=== PATIENT | female | born 1960 | race Caucasian/White ===

== ENCOUNTER 2018-07-20 07:31 | Observation (INO) ==
[2018-07-20] MEDS ORDERED: EPINEPHRINE IM ONE (07:35)
[2018-07-20] MEDS ORDERED: SOLU-MEDROL IV ONE (07:36)
[2018-07-20] MEDS ORDERED: BENADRYL IV ONE (07:36)
[2018-07-20] MEDS ORDERED: ZOFRAN IV ONE (07:42)
[2018-07-20 08:02] LABS: BASO# 0.02 X1000 (0.0-0.2); BASO% 0.1 % (0.0-0.8); EOS# 0.16 X1000 (0.0-0.7); EOS% 1.1 % (0.0-10.0); HEMATOCRIT 37.1 % (37.0-47.0); HEMOGLOBIN 11.8 g/dL (12.0-16.0); IMM GRAN# 0.06 X1000 (0.0-0.04); IMM GRAN% 0.4 % (0.0-0.5); LYMPH% 11.9 % (20.5-51.1); MCH 25.2 PG (27-31); MCHC 31.8 g/dL (33-37); MCV 79.1 FL (81-99); MONO# 0.66 X1000 (0.11-0.59); MONO% 4.6 % (1.7-9.3); MPV 9.8 FL (7.4-10.4); NEUT# 11.65 X1000 (1.4-6.5); NEUT% 81.9 % (42.2-75.2); PLT 416 X1000 (130-400); RBC 4.69 XMIL (4.2-5.4); RDW 14.9 % (11.5-14.5); WBC 14.25 X1000 (4.8-10.8)
[2018-07-20] MEDS ORDERED: ATIVAN IV ONE (08:28)
[2018-07-20 08:29] LABS: AGAP 14; ALB/GLOB RATIO 1.2; ALBUMIN 3.7 g/dL (3.5-5.0); ALKALINE PHOSPHATASE 119 U/L (32-104); AMYLASE 40 U/L (20-200); BUN 15 mg/dL (8-22); CALCIUM 8.6 mg/dL (8.8-10.2); CHLORIDE 103 mmol/L (98-107); COSMO 291; CREATININE 0.7 mg/dL (0.5-0.9); ESTIMATED GFR > 60; GLUCOSE 151 mg/dL (70-104); GOT 14 U/L (10-30); GPT 16 U/L (10-36); LIPASE 18 U/L (13-60); POTASSIUM 3.3 mmol/L (3.5-5.1); SODIUM 144 mmol/L (136-145); TCO2 27 mmol/L (25-35); TOTAL BILIRUBIN 0.25 mg/dL (0.20-1.00); TOTAL PROTEIN 6.9 g/dL (6.3-8.3)
[2018-07-20] MEDS ORDERED: NS 1,000 ML IV ONE (08:29)
[2018-07-20] MEDS ORDERED: ZOFRAN IV PRN (08:57)
[2018-07-20] MEDS ORDERED: TYLENOL PO PRN (08:57)
--- NOTE | 2018-07-20 09:04 | PROVIDER DOCUMENTATION ---
This chart was entered by Lavonne Angeles Scribe, acting as scribe for Mathew Conroy MD. HPI-General Adult - General Chief Complaint: Allergic Reaction Stated Complaint: THROAT CLOSING UP Time Seen by Provider: 07/20/18 07:33 Source: patient Allergies/Adverse Reactions: Patient Allergies Allergy/AdvReac Type Severity Reaction Status Date / Time Penicillins AdvReac RASH Verified 07/20/18 07:48 Home Medications: Home Medication List Medication Instructions Recorded Confirmed Last Taken Type Estrogens,Conj/Bazedoxifene 1 tab PO DAILY 07/20/18 07/20/18 07/19/18 History [Duavee 0.45 mg/20 mg Tablet] Hydrochlorothiazide 25 mg PO DAILY 07/20/18 07/20/18 07/19/18 History Losartan [Cozaar] 100 mg PO DAILY 07/20/18 07/20/18 07/19/18 History Omeprazole 40 mg PO DAILY 07/20/18 07/20/18 07/19/18 History Venlafaxine HCl [Venlafaxine HCl 75 mg PO HS 07/20/18 07/20/18 07/19/18 History ER] - History of Present Illness -Gen Adult Nature of Presenting Problems: 57yof with hx of HTN c/o sore throat, nausea, vomiting that began yesterday and has worsened this morning. She denies any other pain. The patient's sister reports that she made "spicy chicken wings" for dinner last night for the patient. The patient's sister denies that the patient has had an allergic reaction similar to this episode previously. She reports she is allergic to penicillin. The patient's sister is at bedside. Location of Pain/Injury: reports: face (swollen), mouth (sore throat) Quality of Pain: reports: other (sore) Severity: reports: mild Onset/Duration: reports: this morning (worsened), last night Timing: reports: still present, intermittent, constant Context/Activities at Onset: reports: none Modifying Factors: improves with: nothing Associated Symptoms: reports: nausea, vomiting, other (sore throat, swollen face) Similar Symptoms Previously?: No Recently seen or treated by another doctor?: No Review of Systems - Adult - REVIEW OF SYSTEMS - ADULT ROS:: limited per condition Constitutional: denies: chills, fever Eyes: reports: no symptoms reported Ears, Nose, Mouth & Throat: reports: throat pain (sore throat) Cardiovascular: reports: no symptoms reported Respiratory: reports: no symptoms reported Gastrointestinal: reports: nausea, vomiting Genitourinary: reports: no symptoms reported Musculoskeletal: reports: no symptoms reported Integumentary: reports: other (swollen face). denies: itching Neurological: reports: no symptoms reported Psychiatric: reports: no symptoms reported Endocrine: reports: no symptoms reported Hematologic/Lymphatic: reports: no symptoms reported Allergic/Immunologic: reports: no symptoms reported All Other Systems: Reviewed and Negative Past History - Adult - PAST MEDICAL HISTORY-ADULT Review of Records: reports: Old Records Reviewed, Nursing Assessment Review, Medications Reviewed, Social history reviewed & non-contributory. Major Childhood Illnesses: reports: denies history Cardiovascular: reports: HTN - PRIOR SURGERIES/PROCEDURES Surgical/Procedure History: reports: none - IMMUNIZATION STATUS Childhood Immunizations: See Nurse Assessment Flu Vaccine: See Nurse Assessment - FAMILY HISTORY Family History: reviewed, not pertinent - SOCIAL HISTORY Living Situation: family Physical Exam-General - PHYSICAL EXAM-ADULT Initial Vital Signs Reviewed: Yes - CONSTITUTIONAL General Appearance: alert, mild distress, obese, anxious - EYES Eyes: PERRL/EOMI, pink conjunctivae - HEAD, EARS, NOSE, MOUTH & THROAT HENMT: angioedema (mild limited to uvula.), pharyngeal erythema, other (uvula swollen, erythema) - NECK Neck: non-tender, supple - RESPIRATORY Respiratory: lungs clear, normal breath sounds. negative: rhonchi, wheezing - CARDIOVASCULAR Cardiovascular: no murmur, tachycardia - GASTROINTESTINAL (ABDOMEN) Abdominal Exam: non tender, soft - MUSCULOSKELETAL Extremity: normal range of motion, non-tender, normal inspection, no pedal edema - SKIN Integumentary: normal color, warm/dry - NEUROLOGIC Neurologic: grossly normal, no motor/sensory deficits - PSYCHIATRIC Psych/Mental Status: oriented x 3, anxious Progress - PLAN OF CARE/RESULTS Result Diagrams: 07/20/18 07:40 07/20/18 07:40 - REASSESSMENT Reassessment #1 Time Reassessed: 08:15 Status: unchanged (no respiratory distress, pt is speaking well) Reassessment #2 Time Reassessed: 08:30 Status: unchanged Reassessment #3 Time Reassessed: 08:41 Status: unchanged (pt is still anxious, pt expresses anxiety about being admitted to the hospital. pt is handling secretions well, no respiratory distress, pt is still speaking well) Reassessment #4 Time Reassessed: 09:45 Status: improving (at recheck, pts erythema is now improving and petechiae now more noticable on exam. Plan is to admit and proceed with possible infectious workup and continue monitoring for angioedema/allergic reaction.) - EKG 1 Time of EKG reading by physician:: 11:27 EKG Read and Signed by:: Mathew Conroy EKG Interpretation (*Must complete 3 of following elements*): Abnormal Rate: 112 Rhythm: Sinus tachycardia [place]: normal ST Wave: non-specific ST changes (T wave abnormality) - XRAY 1 XRAY Study: Chest Impression: Normal (FINDINGS: The lungs are well expanded. The heart is not enlarged. The vessels are not distended. There are no infiltrates. No pleural effusions. IMPRESSION: No pneumonia.) - CONSULTS/PCP/HOSPITALIST Notification #1 *Consult/PCP/Hospitalist*: Elizabeth MERCEDES Time Discussed: 08:49 Consult Disposition: Admit Departure - Departure Date of Disposition Decision: 07/20/18 Time of Disposition Decision: 09:00 DIAGNOSIS: Allergic reaction, Angioedema, HTN (hypertension) Disposition: ADMITTED INPATIENT 09 Certified Medical Emergency: Emergent Condition: Fair - Critical Care Note This patient required my direct & personal management of CC.: Yes Total Time (mins): 60 Critical Care Statement: This patient required my direct personal management to treat or rule out processes, the absence of which, could potentiallly result in sudden, clinically significant life or limb threatening deterioration. Attestation - Physician/ SHANNAN Attestation Patient care was provided by Advanced Practice Provider:: No The physician spent face to face time with patient:: Yes Advanced Practice Provider documentation review:: Supervising physician onsite and consulted in the evaluation and care of this patient. The physician did have a face to face encounter with the patient. This chart was documented by the indicated scribe, (Lavonne Angeles Scribe) and accurately reflects the services I performed and decisions made by me, Mathew Conroy MD, as attested by the provider's signature.
[2018-07-20 09:32] LABS: INR 0.91
[2018-07-20 09:33] LABS: PTT 28.2 Seconds (22.3-41.8)
[2018-07-20] MEDS ORDERED: EPIPEN IM PRN (09:56)
[2018-07-20] MEDS ORDERED: ZANTAC IV SCH (10:15)
[2018-07-20] MEDS ORDERED: DUONEB (A & A) ONE (10:25)
[2018-07-20] MEDS: DUONEB (A & A) INH SCH ×4 (10:30→23:14)
--- NOTE | 2018-07-20 10:30 | Diag Imaging Result Doc PS360 ---
EXAM: CHEST-2 VIEWS HISTORY: anaphylaxis; leukocytosis TECHNIQUE: Chest two views COMPARISON: None. FINDINGS: The lungs are well expanded. The heart is not enlarged. The vessels are not distended. There are no infiltrates. No pleural effusions. IMPRESSION: No pneumonia. Electronically signed by Kyaw Chaves 07/20/2018 10:27 AM
[2018-07-20 10:42] LABS: ALLEN TEST YES; BE 4.4 mmoll (-3.0-3.0); BLOOD TYPE ARTERIAL; HCO3-(ACT) 28.2 mmoll (20.0-26.0); METHB 1.1 % (0.0-1.5); O2(CT) 14.9 mL/dL (15.0-23.0); PCO2(98.6) 39 mmHg (35-45); PO2(98.6) 59 mmHg (60-100); SAMPLE BLOOD; SAO2 94.8 % (95.0-100.0); THB 11.5 g/dL (11.5-17.4); pH(98.6) 7.47 (7.35-7.45)
[2018-07-20 10:44] LABS: MODALITY ROOM AIR
[2018-07-20] MEDS ORDERED: DECADRON IV SCH (11:00)
[2018-07-20 11:25] LABS: HEMOGLOBIN A1C 5.9 % (4.8-6.0)
--- NOTE | 2018-07-20 11:32 | HISTORY AND PHYSICAL ---
PRIMARY CARE PHYSICIAN: Dr. Donta Garces CHIEF COMPLAINT: Shortness of breath and throat swelling. HISTORY OF PRESENT ILLNESS: Ms. Chelsi Rebolledo is a 57-year-old female with a medical history of hypertension, depression, seasonal allergies and GERD, who presents with complaints of 2 days' history of throat pain with progressive swelling. She states the night before last, she woke up in the middle of the night with drainage and felt like she was having some sinus infection, and then she woke up that morning around 0730 with a sore throat. She went to the [employer] all day yesterday, took ibuprofen, and then had dinner after [employer] which included hot wings with [employer] Sauce. She felt like it had gotten worse. She was awake all night and then slept some and by this morning when she woke up, she could not swallow, was only able to spit clear colored sputum and was having significant respiratory distress. Her 5-year-old grandson called family. She was able to get help. She also felt like she was hot with chills this morning but otherwise no other complaints about the throat or fevers or anything, just sore throat for 2 days with swelling. When she got here, she was in a good bit of respiratory distress. She was treated for anaphylaxis. Had significant angioedema in her throat. Speech was muffled. She was near high risk for intubation. She received IV Benadryl, IV Ativan, IM EpiPen, 125 of Solu Medrol and 4 of Zofran urgent, emergently, which all seemed to have helped quite a bit. She is currently on room air with good O2 saturations. She still feels like her throat is swollen, but the throat is more visible now, where it was just erythematous, and now there appears to be a red rash in the back of her throat. She states she felt like there was a white rash at some point last night or this morning, but now it is red. She does not have fever. She does have an elevated white blood cell count at 14,000. We will swab her throat to evaluate for strep. 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 We will transfer her to the ICU and keep an EpiPen at the bedside in case of emergency due to anaphylaxis. PAST MEDICAL HISTORY: 1. Hypertension. 2. Melanoma 10 years ago, free of cancer now. 3. Depression. 4. Seasonal allergies. 5. GERD. 6. Left hip bursitis. 7. Left elbow tendonitis. PAST SURGICAL HISTORY: 1. Ten years ago melanoma removed. 2. Right ankle repair. 3. Uterine ablation. SOCIAL HISTORY: Denies tobacco, alcohol or illicit drug use. She is a grandmother and had her grandchild with her last night. She works at school around children. FAMILY HISTORY: Mother's side of the family had breast cancer, diabetes, and coronary artery disease. Father's side of the family had coronary artery disease and melanoma. ALLERGIES: Penicillin. HOME MEDICATIONS: 1. Cozaar 100 mg p.o. daily. 2. Duavee 1 tab p.o. daily (that is estrogen). 3. Hydrochlorothiazide 25 mg p.o. daily. 4. Omeprazole 40 mg p.o. daily. 5. Venlafaxine HCl extended release 75 mg p.o. nightly. REVIEW OF SYSTEMS: A 14-point review of systems are complete, and all are negative except for those mentioned in the above HPI. PHYSICAL EXAMINATION: VITAL SIGNS: Temperature is 98.8, heart rate 105, respiratory rate 16, blood pressure 165/71, O2 saturation is 97% on room air. GENERAL: Ms. Chelsi Rebolledo is a 57-year-old female. She is in no acute distress. She is able to answer questions appropriately. She does have swelling in the throat which changes the sound of her voice, but no respiratory distress at this time. HEENT: Atraumatic and normocephalic. Oropharyngeal area is red. She has red and little petechia, a rash in the back of her throat. It is swollen to the point that it is causing her voice to change. She states that it is hard to swallow. Pupils equal and reactive. Extraocular movements were intact. NECK: Trachea midline. CARDIOVASCULAR: S1 and S2. Tachycardic rate and rhythm. No rubs, gallops or murmurs. No lower extremity edema. Plus 2 dorsalis and radial pulses. Negative JVD or carotid bruits. PULMONARY: Clear to auscultation, bilateral breath sounds. No accessory muscle use or work of breathing noted. Tolerating room air. GASTROINTESTINAL: Soft, nontender and nondistended. Positive bowel sounds x4. EXTREMITIES: Moves all extremities equally with full range of motion. NEUROLOGICAL: Alert and oriented x3. Follows commands. Sensory is intact. SKIN: Warm, dry and intact. DIAGNOSTIC DATA: White blood cells are 14,000, hemoglobin 11, hematocrit 37, platelet count 416. INR is 0.91. PTT is 28.2. Sodium is 144, potassium 3.3, BUN is 15, creatinine 0.7, glucose 151, calcium 8.6, bilirubin is 0.25, AST is 14, ALT is 16. Troponin less than 0.01. Albumin is 3.7. Amylase 40, lipase 18. IMAGING: Chest x-ray is currently pending and has been performed. Report is not available yet. ASSESSMENT AND PLAN: 1. Anaphylaxis, source unknown. She has angioedema, pharyngitis, and a rash in her throat. She does have leukocytosis. It could be due to the inflammatory response, but this rash could be infectious as well. She does work around children. Throat swab has been ordered to rule out strep. Apparently she has been having symptoms that have been becoming more progressive since 2 days ago. She will be scheduled on Benadryl, Zantac and Solu Medrol. We will monitor her in the ICU. We will also keep a rescue EpiPen at the bedside and will do nebulizers with albuterol every 4 hours. 2. Hypertension. She is hypertensive, but we are going to have to hold oral medications for now. 3. Depression. Hold medication for now. 4. Gastroesophageal reflux disease. She will be on the Zantac, so that should help with that. 5. DVT prophylaxis with SCDs. Dictated by MAGO Reed for Orion Giraldo MD cc: MAGO Reed MD
[2018-07-20 12:31] LABS: URINE SOURCE CLEAN CATCH
[2018-07-20] MEDS: BENADRYL IV SCH ×4 (12:45→23:30)
[2018-07-20] MEDS: ZANTAC 50 MG in NS 50 ML IV SCH ×2 (12:45→20:06)
[2018-07-20 12:47] LABS: BILIRUBIN URINE NEGATIVE (NEGATIVE); BLOOD URINE NEGATIVE (NEGATIVE); COLOR YELLOW; GLUCOSE URINE NEGATIVE (NEGATIVE); KETONE URINE 20 mg/dL (NEGATIVE); LEUKOCYTES URINE NEGATIVE (NEGATIVE); NITRITE URINE NEGATIVE (NEGATIVE); PH URINE 6.5; PROTEIN URINE TRACE mg/dL (NEGATIVE); SP GRAVITY URINE 1.008; TURBIDITY URINE CLEAR (CLEAR); UROBILINOGEN URINE NORMAL (NORMAL)
[2018-07-20 12:48] LABS: UR EPITHELIAL CELLS <10 /HPF (<10); URINE BACTERIA NEGATIVE /HPF; URINE RBC <10 /HPF (<10); URINE WBC <10 /HPF (<10)
[2018-07-20] MEDS: CLINDAMYCIN 600 MG/D5W 600 MG/50 ML IVPB IV SCH ×2 (13:52→22:05)
[2018-07-20] MEDS ORDERED: SOLU-MEDROL IV SCH (14:00)
[2018-07-20] MEDS: SOLU-MEDROL IV SCH ×2 (14:15→20:05)
[2018-07-21] MEDS: SOLU-MEDROL IV SCH ×4 (02:17→21:03)
[2018-07-21] MEDS: ZANTAC 50 MG in NS 50 ML IV SCH ×3 (03:14→21:03)
[2018-07-21] MEDS: BENADRYL IV SCH ×5 (03:14→21:03)
[2018-07-21] MEDS: DUONEB (A & A) INH SCH ×6 (03:41→23:31)
[2018-07-21 04:57] LABS: BASO# 0.01 X1000 (0.0-0.2); BASO% 0.1 % (0.0-0.8); HEMATOCRIT 35.3 % (37.0-47.0); HEMOGLOBIN 11.1 g/dL (12.0-16.0); IMM GRAN% 0.5 % (0.0-0.5); LYMPH# 1.36 X1000 (1.2-3.4); LYMPH% 7.4 % (20.5-51.1); MCH 25.3 PG (27-31); MCHC 31.4 g/dL (33-37); MCV 80.6 FL (81-99); MONO% 1.6 % (1.7-9.3); NEUT# 16.56 X1000 (1.4-6.5); NEUT% 90.4 % (42.2-75.2); PLT 411 X1000 (130-400); RBC 4.38 XMIL (4.2-5.4); RDW 15.1 % (11.5-14.5); WBC 18.33 X1000 (4.8-10.8)
[2018-07-21] MEDS: CLINDAMYCIN 600 MG/D5W 600 MG/50 ML IVPB IV SCH ×3 (05:10→22:26)
[2018-07-21 06:18] LABS: INR 0.92; PROTIME 13.1 Seconds (11.0-16.0)
[2018-07-21 07:01] LABS: AGAP 11; ALB/GLOB RATIO 1.1; ALBUMIN 2.7 g/dL (3.5-5.0); ALKALINE PHOSPHATASE 104 U/L (32-104); BUN 37 mg/dL (8-22); CALCIUM 8.3 mg/dL (8.8-10.2); CHLORIDE 97 mmol/L (98-107); COSMO 284; CREATININE 0.4 mg/dL (0.5-0.9); ESTIMATED GFR > 60; GLUCOSE 152 mg/dL (70-104); GOT 19 U/L (10-30); GPT 37 U/L (10-36); MAGNESIUM 1.9 mg/dL (1.5-2.7); SODIUM 136 mmol/L (136-145); TCO2 28 mmol/L (25-35); TOTAL BILIRUBIN 0.39 mg/dL (0.20-1.00); TOTAL PROTEIN 5.2 g/dL (6.3-8.3)
[2018-07-21 07:19] LABS: BANDS 2 % (0-1); LYMPHS 2 % (21-51); MONO 6 % (1-9); SEGS 90 % (42-75)
--- NOTE | 2018-07-21 08:23 | EKG Report ---
Test Performed on : 07/20/2018 11:27:08 AM Test Reason : anaphylaxis Blood Pressure : / mmHG Vent. Rate : 112 BPM Atrial Rate : 112 BPM P-R Int : 158 ms QRS Dur : 092 ms QT Int : 340 ms P-R-T Axes : 049 057 022 degrees QTc Int : 464 ms Sinus tachycardia. T wave abnormality, consider inferior ischemia Abnormal ECG No previous ECGs available Unconfirmed Result
[2018-07-21] MEDS ORDERED: DIFLUCAN PO ONE (10:15)
[2018-07-21 12:15] LABS: ALLEN TEST YES; BE 2.7 mmoll (-3.0-3.0); BLOOD TYPE ARTERIAL; HCO3-(ACT) 26.9 mmoll (20.0-26.0); METHB 0.7 % (0.0-1.5); O2(CT) 14.2 mL/dL (15.0-23.0); O2HB 90.8 % (95.0-99.0); PCO2(98.6) 35 mmHg (35-45); PO2(98.6) 55 mmHg (60-100); SAMPLE BLOOD; SAO2 92.9 % (95.0-100.0); THB 11.1 g/dL (11.5-17.4); pH(98.6) 7.48 (7.35-7.45)
--- NOTE | 2018-07-21 15:12 | Diag Imaging Result Doc PS360 ---
EXAM: CT THORAX W/O CONTRAST INDICATION: r/o lung lesion TECHNIQUE: This exam was performed using automated exposure control, adjustment of mA or kV according to patient size, and/or use of iterative reconstruction technique. COMPARISON: 03/09/2013 FINDINGS: There is mild platelike atelectasis involving the lower lobes bilaterally. There is a stable calcified granuloma in the right lower lobe. The lungs are essentially clear, otherwise. There is no pleural fluid collection and no pneumothorax. There are calcified mediastinal and right hilar lymph nodes indicating prior granulomatous disease. There is no significant mediastinal or hilar lymphadenopathy, otherwise. Limited views of the upper abdomen reveals mild diffuse hepatic steatosis that is similar to the previous study. The bony structures are intact. IMPRESSION: Mild platelike atelectasis involving both lower lobes. Essentially unremarkable CT of the chest, otherwise. Electronically signed by Lee Morgan 07/21/2018 3:10 PM
[2018-07-21] MEDS: PATIENT'S OWN MED PO SCH (16:08)
--- NOTE | 2018-07-21 19:48 | DISCHARGE SUMMARY ---
ADMISSION DATE: 07/20/2018 DISCHARGE DATE: ADDENDUM - DISCHARGE SUMMARY: Ms. Chelsi Rebolledo was admitted to the hospital as a case of angioedema and she was placed on steroids, along with H1 and H2 blockers. She was also found to have strep pharyngeal infection for which she was placed on clindamycin. The patient is allergic to penicillin. The patient seemed to have done well and the plan was to have a discharged today. However after blood gas done prior to discharge indicates that O2 level was slow at PO2 [*] of 55 and lactate level seemed to have been worsening. I will chief either 1 or 2 more days before recommending discharge. I have requested a CT scan of the chest to be done and also a Pulmonology consult for the hypoxia. She may be able to be discharged tomorrow or the day after. cc: Orion Giraldo MD
[2018-07-21] MEDS: EFFEXOR XR PO SCH (21:04)
--- NOTE | 2018-07-21 21:24 | PULMONOLOGY CONSULTATION ---
DATE: 07/21/2018 REASON FOR CONSULTATION: Hypoxemia. HISTORY OF PRESENT ILLNESS: Ms. Rebolledo is a 57-year-old white female who was admitted to the hospital 07/20/2018 with shortness of breath and throat swelling. The patient reports 3 days prior to admission she developed some pharyngitis and pain with swallowing. She may have had fevers, but she did not check a temperature. She did take Tylenol and Motrin. This persisted the following day, but did not keep her in the house. On the day of admission, she woke up with ongoing severe pain with difficulty swallowing. She reports her uvula was extremely read. She was evaluated in the emergency room and was noted to have leukocytosis. A group A rapid strep antigen was positive. Influenza screen was negative. She has been initiated on steroids and antibiotics. She continues to have some cough and wheeze. She does report that she has had wheezing in the past with upper respiratory infection. She underwent an arterial blood gas this morning which revealed mild lactic acidosis at 2.8 with mild hypoxemia on room air. The patient did undergo CT scan of the thorax which revealed some atelectasis. She reports she continues to improve. PAST MEDICAL HISTORY: Problem List: 1. Wheezing/bronchospasm with upper respiratory infection. 2. Seasonal allergies. 3. Remote history of melanoma removal. 4. Gastroesophageal reflux disease. 5. History of depression. 6. Status post ankle repair. 7. Penicillin allergy. SOCIAL HISTORY: No tobacco or alcohol use. She is exposed to school-age children. FAMILY HISTORY: Positive for coronary artery disease, breast cancer, diabetes. PHYSICAL EXAMINATION: General: Reveals a well-developed, well-nourished, white female who appears her stated age and in no distress. Vital Signs: BP 138/68, heart rate 102, respiratory rate 18, oxygen saturation 95% on room air. HEENT: Pupils are equal and reactive. oropharynx is clear. Neck: Supple. Chest: Reveals crackles in the bases with wheezing on deep breath and cough. Cardiac: S1-S2. Abdomen: Obese and soft. Extremities: Without edema. LABORATORIES: Chest x-ray reveals mild atelectasis in the lung bases. IMPRESSION: A 57-year-old with group A streptococcal pharyngitis,, mild bronchospasm with atelectasis, mild hypoxemia. The patient continues to improve. RECOMMENDATION: 1. Agree with clindamycin as you are doing given penicillin allergy. 2. I agree with steroids and steroid taper at the time of discharge. 3. Continue nebulizer treatments. 4. Please prescribe an albuterol inhaler at the time of discharge. 5. Anticipate discharge in the next 24 to 48 hours if she continues to improve. cc: Gildardo Mota MD
--- NOTE | 2018-07-21 22:14 | DISCHARGE SUMMARY ---
ADMISSION DATE: 07/20/2018 DISCHARGE DATE: 07/21/2018 PRINCIPAL DIAGNOSIS: Angio edema. SECONDARY DIAGNOSES: 1. Strep pharyngitis. 2. Hypertension. 3. Depression. 4. Gastroesophageal reflux disease. DISCHARGE MEDICATIONS: Include: Medrol Dosepak to be taken as directed, Claritin 10 mg p.o. daily as directed, Tagamet 400 mg p.o. twice a day as directed, clindamycin 300 mg p.o. q.6 hours for 7 days, Diflucan 150 mg p.o. x 1 dose, Toprol-XL 25 mg p.o. once a day, Duavee 0.45 mg/20 1 p.o. daily, hydrochlorothiazide 25 mg p.o. daily, Omeprazole 40 mg p.o. daily, venlafaxine 75 mg at bedtime. CONSULTATIONS DONE DURING THIS HOSPITAL STAY: None. SPECIAL PROCEDURES DONE DURING THIS HOSPITAL STAY: None. HOSPITAL COURSE: Ms. Chelsi Rebolledo presents to the hospital because of shortness of breath as well as throat swelling. She was diagnosed as having angio edema at time of her presentation, and was placed on steroids along with H1 and also H2 [place]. In addition, she was found to have throat culture positive for strep and was started on antibiotics. When she presented to the hospital. Her pharynx was inflamed. This seemed to have improved. PHYSICAL EXAMINATION: Vital Signs: During my evaluation today, her vital signs were as follows: Temperature 97.9, pulse 97, respiratory 22, blood pressure 136/56, oxygen is 93%. HEENT: Atraumatic, normocephalic. The pharynx is much less inflamed. Cardiovascular: S1, S2. Respiratory: Has evidence of good air entry bilaterally. Abdomen: Soft, nontender. No masses felt. Extremities: No evidence of edema. Central Nervous System: No obvious focal deficit noted. LABORATORY DATA: WBC is 18.3 hematocrit is 35.3, with a platelet count of 411,000. Sodium is 136, potassium 4.0, chloride 97, bicarb 28, BUN is 37, creatinine 0.4 ALT is 37. PLAN: The patient can be discharged home today. She will continue her antibiotics, along with steroids, along with H1 and H2 blockers at home. She will need to follow up with her primary care physician in the next 2 to 3 days to follow up on her white count and to ensure it is trending downwards. Also, I will get her to see Hematology because she is noted to be anemic. The patient's diet will be healthy heart. Activity will be as tolerated. She is expected to take her discharge medications as noted above. cc: Orion Giraldo MD
[2018-07-22] MEDS: BENADRYL IV SCH ×4 (02:51→15:23)
[2018-07-22] MEDS: SOLU-MEDROL IV SCH ×2 (02:52→08:39)
[2018-07-22] MEDS: DUONEB (A & A) INH SCH ×6 (03:23→23:21)
[2018-07-22] MEDS: ZANTAC 50 MG in NS 50 ML IV SCH ×3 (05:59→21:58)
[2018-07-22] MEDS: CLINDAMYCIN 600 MG/D5W 600 MG/50 ML IVPB IV SCH ×3 (06:45→22:30)
[2018-07-22] MEDS: PATIENT'S OWN MED PO SCH (08:50)
[2018-07-22 10:22] LABS: ALLEN TEST NO; BE 2.4 mmoll (-3.0-3.0); BLOOD TYPE ARTERIAL; HCO3-(ACT) 26.6 mmoll (20.0-26.0); O2(CT) 13.2 mL/dL (15.0-23.0); PCO2(98.6) 37 mmHg (35-45); SAMPLE BLOOD; SAO2 91.2 % (95.0-100.0); THB 10.6 g/dL (11.5-17.4); pH(98.6) 7.46 (7.35-7.45)
[2018-07-22 10:24] LABS: MODALITY ROOM AIR; O2HB 88.6 % (95.0-99.0); PO2(98.6) 49 mmHg (60-100)
[2018-07-22] MEDS ORDERED: NS 1,000 ML IV SCH (16:45)
--- NOTE | 2018-07-22 17:20 | PROGRESS NOTE ---
DATE: 07/22/2018 SUBJECTIVE: Today, Ms. Rebolledo refers to be feeling a lot better. Sore throat is improved. Her oxygen saturation continues to be low. OBJECTIVE: Vital signs: Blood pressure is 120/56, pulse 115, respirations 20, temperature 98.6 degrees. General: Ms. Rebolledo is a 57-year-old female. She is in bed. No distress. Mucosa is pink and moist. Anicteric. Acyanotic. Neck is supple. Chest was clear to auscultation. No crepitations. No rhonchi. Cardiovascular: Regular rate and rhythm. Abdomen is soft, nontender. Bowel sounds present. Extremities: No pedal edema. Central Nervous System: Patient is awake, alert, oriented. No focal neurological deficit. LABORATORY DATA: None for today. ASSESSMENT: 1. Acute hypoxemia, likely secondary to bronchitis and atelectasis. Patient is getting nebulization. She is also on clindamycin antibiotics. 2. Strep throat. The patient is allergic to penicillin so she is currently on antibiotics. 3. Lactic acidosis. I think this is a manifestation of over-utilization of the respiratory muscles. However, the patient's white cell count is also minimally elevated, which could be a reflection of the steroids, but sepsis will always be at the back of the diagnosis. The patient is already on antibiotics I would gently hydrate her over the course of tonight and recheck on her labs tomorrow morning. 4. History of seasonal allergies. Noted. In general, I think Ms. Rebolledo is doing fairly okay. She continues to be remarkably hypoxemic, not quite sure. A CT scan of the chest yesterday was unremarkable. I think she could probably have pharyngitis associated with bronchitis and atelectasis which is driving her hypoxemia. We will continue with the nebulization, incentive spirometer. Continue with the antibiotics and recheck on her labs in the morning and hopefully get her home tomorrow. cc: Tarik Waddell MD MTDD
--- NOTE | 2018-07-22 19:41 | PULMONOLOGY PROGRESS NOTE ---
DATE: 07/22/2018 SUBJECTIVE: The patient is awake, alert, and conversant. She is tolerating p.o. intake today. She reports her sore throat has almost resolved. OBJECTIVE: The patient has been afebrile for the last 24 hours. BP 139/67, heart rate 113, respiratory rate 20, oxygen saturation 92% on room air.HEENT: Pupils are equal and reactive. Oropharynx is clear. Neck: Is supple. Chest: Reveals good air entry bilaterally with minimal crackles in the bases. Abdomen: Obese and soft. Extremities: Without edema. LABORATORIES: Arterial blood gas reveals a pH 7.46, pCO2 of 37, PO2 of 49 with a lactate of 4.1. No chemistries. No white blood count today. No new culture data. IMPRESSION: A 57-year-old with group A streptococcal pharyngitis. Clinically she appears nontoxic. She does have mild tachycardia. Her chest CT scan did reveal mild atelectasis in the lung bases. On arterial blood gas this morning, she had a mild lactic acidosis and mild hypoxemia. The arterial blood gas is interesting and does not fit the clinical picture as far as the lactic acidosis is concerned. The mild hypoxemia can be explained by her truncal obesity. When I stood the patient up at the bedside her oxygen saturation increased to 99%. This alone would not explain the lactate. The patient also has mild tachycardia, but otherwise does not appear to be toxic or septic. She is on significant Benadryl which can cause a slight tachycardia but would require overdose level to produce a lactic acidosis. RECOMMENDATIONS: 1. Continue bronchial hygiene. 2. Discontinue Benadryl. The patient's presentation was most likely due to group A streptococcal pharyngitis and not due to an allergic reaction. 3. Continue clindamycin. 4. Chest x-ray tomorrow morning. 5. Arterial blood gas tomorrow morning. cc: Gildardo Mota MD
[2018-07-22] MEDS: EFFEXOR XR PO SCH (21:58)
[2018-07-23] MEDS: DUONEB (A & A) INH SCH ×3 (03:43→11:09)
[2018-07-23] MEDS: ZANTAC 50 MG in NS 50 ML IV SCH ×2 (05:54→13:08)
[2018-07-23] MEDS: CLINDAMYCIN 600 MG/D5W 600 MG/50 ML IVPB IV SCH ×2 (05:54→13:08)
[2018-07-23 06:42] LABS: BASO# 0.02 X1000 (0.0-0.2); BASO% 0.1 % (0.0-0.8); HEMOGLOBIN 9.6 g/dL (12.0-16.0); IMM GRAN% 1.3 % (0.0-0.5); LYMPH# 2.83 X1000 (1.2-3.4); LYMPH% 18.6 % (20.5-51.1); MCV 80.7 FL (81-99); MONO# 0.92 X1000 (0.11-0.59); MPV 9.9 FL (7.4-10.4); NEUT# 11.26 X1000 (1.4-6.5); PLT 408 X1000 (130-400); RBC 3.84 XMIL (4.2-5.4); RDW 15.5 % (11.5-14.5); WBC 15.23 X1000 (4.8-10.8)
[2018-07-23 06:44] LABS: ALLEN TEST YES; BE 3.4 mmoll (-3.0-3.0); BLOOD TYPE ARTERIAL; HCO3-(ACT) 27.6 mmoll (20.0-26.0); METHB 0.6 % (0.0-1.5); O2(CT) 14.6 mL/dL (15.0-23.0); PCO2(98.6) 35 mmHg (35-45); PO2(98.6) 109 mmHg (60-100); SAMPLE BLOOD; SAO2 98.9 % (95.0-100.0); THB 10.6 g/dL (11.5-17.4); pH(98.6) 7.49 (7.35-7.45)
[2018-07-23 06:45] LABS: MODALITY ROOM AIR
[2018-07-23 07:35] LABS: AGAP 10; ALB/GLOB RATIO 1.2; ALBUMIN 3.2 g/dL (3.5-5.0); ALKALINE PHOSPHATASE 83 U/L (32-104); BUN 27 mg/dL (8-22); CALCIUM 8.3 mg/dL (8.8-10.2); CHLORIDE 112 mmol/L (98-107); COSMO 306; CREATININE 0.7 mg/dL (0.5-0.9); ESTIMATED GFR > 60; GLUCOSE 120 mg/dL (70-104); GOT 12 U/L (10-30); GPT 20 U/L (10-36); POTASSIUM 2.7 mmol/L (3.5-5.1); SODIUM 151 mmol/L (136-145); TCO2 29 mmol/L (25-35); TOTAL BILIRUBIN < 0.15 mg/dL (0.20-1.00); TOTAL PROTEIN 5.8 g/dL (6.3-8.3)
[2018-07-23] MEDS: PATIENT'S OWN MED PO SCH (10:26)
[2018-07-23] MEDS ORDERED: D5 1/4 NS 1,000 ML IV SCH (11:00)
[2018-07-23 11:30] VITALS: BP 139/68
[2018-07-23 14:54] LABS: AGAP 11; BUN 22 mg/dL (8-22); CALCIUM 8.1 mg/dL (8.8-10.2); CHLORIDE 106 mmol/L (98-107); COSMO 295; CREATININE 0.8 mg/dL (0.5-0.9); ESTIMATED GFR > 60; GLUCOSE 159 mg/dL (70-104); POTASSIUM 2.7 mmol/L (3.5-5.1); SODIUM 145 mmol/L (136-145); TCO2 28 mmol/L (25-35)
--- NOTE | 2018-07-24 04:43 | DISCHARGE SUMMARY ---
ADMISSION DATE: 07/20/2018 DISCHARGE DATE: 07/23/2018 DISCHARGE DIAGNOSES: 1. Angioedema. 2. Strep pharyngitis. 3. Hypertension. 4. Depression. 5. Gastroesophageal reflux disease. DIAGNOSTICS: 1. Chest x-ray revealed no pneumonia, lungs are well expanded, heart is not enlarged, vessels are not distended. 2. CT of the chest without contrast reveals mild plate-like atelectasis involving both lower lobes, essentially unremarkable CT of the chest, otherwise. 3. Blood cultures x2 revealed no growth after 48 hours. 4. Group A strep, rapid antigen was positive. 5. Influenza screen A and B were both negative. HOSPITAL COURSE: Ms Rebolledo presented to the emergency room because of shortness of breath and her throat swelling. She was found to have angioedema as well as Strep throat. She was treated with H1 and H2 blockers as well as antibiotics. Symptoms have improved and thankfully she is ready for discharge. PHYSICAL EXAMINATION: Vital signs: Blood pressure is 139/68 with a heart rate of 81, respirations are 20, temperature is 98.5 degrees oral with O2 saturations 95% to 97% on room air. Cardiovascular: Regular rate and rhythm. S1 and S2 appreciated. She has no lower extremity edema. Calves are nontender bilateral. Peripheral pulses are palpable x4 extremities. Pulmonary: Breath sounds are clear with no increased work of breathing noted. Chest rises and falls symmetric with respiration. Chest wall is nontender to palpation. Gastrointestinal: Abdomen is soft, nontender, nondistended. Bowel sounds in all 4 quadrants. Neurologic: She is alert and oriented. HEENT: She has no tongue. Skin: Warm and dry. DISCHARGE MEDICATIONS: 1. Duavee 0.45/20 mg tablet, 1 daily. 2. Hydrochlorothiazide 25 mg daily. 3. Omeprazole 40 mg daily. 4. Effexor 75 mg at bedtime. 5. EpiPen 1 p.r.n. to use as directed. 6. Norvasc 5 mg p.o. daily. FOLLOW-UP: 1. Dr. Donta Garces August 01 at 9:[address] Mota as scheduled. 3. Dr. Mckay. Dr. Mckay's office will call to schedule an appointment. She is being discharged home in stable condition with family members. She was instructed to call to be seen sooner or return to the emergency room for any recurrence of edema, swelling of her throat, tongue, lips, any shortness of breath, difficulty swallowing, or for any questions or concerns that she may have. TIME SPENT: This is a greater than 30 minute discharge. Dictated by MAGO Topete for Tarik Waddell MD This chart was documented by, MAGO Topete and accurately reflects the services performed, treatment plan and medical decisions as attested by the providers signature Tarik Waddell MD. cc: MAGO Topete MD
== END 2018-07-23 14:52 | disposition home or self-care (01) ==
LOC: ED 07:31 → EDIPHOLD 07:31 → SUATTDRO 07:32 → ICU 13:52 → 4N 07-21 14:34
PROVIDERS: ATTEND Internal Medicine
CPT/HCPCS: 71020; 71046; 71250; 80048; 80053; 81001; 82150; 82550; 82805; 83036; 83605; 83690; 83735; 84484; 85025; 85610; 85730; 87040; 87275; 87276; 87430; 87804; 93005; 94640; 94761; 94799; 96372; 96374; 96375; 96376; 99285; A9270; J0171; J1200; J2060; J2405; J2780; J2930; J7030